=== PATIENT | male | born 1955 | race Caucasian/White ===

== ENCOUNTER → 2017-03-17 | Outpatient (CLI) | payer BC, OTHER ==
[~2017-03-17] MED LIST: AMLODIPINE BESY10 MG PO; ANTIVERT25 MG PO; ASPIR 8181 MG PO; AZOR 10-40 MG1 EACH PO; CEFUROXIME500 MG PO; CLONIDINE0.1 PO; DEPO-TESTO200 MG/1 M IM; GLUCOPHAGE XR750 MG PO; IRBESARTAN300 MG PO; JANUMET XR 1001 EACH PO; KEFLEX500 MG PO; LIPITOR10 MG PO; PLAVIX 75 MG TA75 M1 PO; ZOFRAN ODT4 MG PO
== END ==
LOC: ULTRA 07:32
DX: M79.89 Other specified soft tissue disorders (principal)

== ENCOUNTER 2017-03-18 09:17 | Day surgery (SDC) | payer BC, OTHER ==
[~2017-03-18] VITALS: Ht 175.3 cm; Wt 83.9 kg
--- NOTE | ~2017-03-18 | HC ---
[facility] [place] [address] CONSULTATION Name: DANY YOUNG Room #: 303-P [facility]..#: [id number] Admission: 03/18/17 Attend Phys: Gulshan Huerta MD Discharge: Date of : 53 Report #: [id number] THIS REPORT FOR: //name// CC: Gulshan Huerta REASON FOR CONSULTATION: I was asked to evaluate the patient concerning left calf infected hematoma. HISTORY OF PRESENT ILLNESS: The patient is a 60-year-old who about a week ago fell over a small picket fence. He had a laceration to his right lower pretibial skin as well as injury to his left calf and thigh. Swelling persisted in his calf along with increased erythema and tenderness. No documented fevers. He has underlying diabetes. Blood sugars have been in the mid 100s. Did not respond to oral antibiotic therapy and was taken to surgery yesterday for incision and drainage of infected hematoma. Gram stain was negative. Cultures are negative today. Overall, feels better today, pain is less and he is beginning to ambulate. ALLERGIES: None. MEDICATIONS: Prior to his admission he thinks he was on cephalexin. He is on ceftriaxone at this time. PAST MEDICAL HISTORY: Diabetes, hypertension, lumbar laminectomy, spinal fusion, gastric bypass, tonsillectomy, bilateral inguinal herniorrhaphies. SOCIAL HISTORY: Nonsmoker, no significant alcohol intake. His tetanus immunization was updated this past week. FAMILY HISTORY: Noncontributory. REVIEW OF SYSTEMS: No cardiopulmonary, GI or complaints. PHYSICAL EXAMINATION: VITAL SIGNS: Afebrile and hemodynamically stable. GENERAL: He is alert and cooperative and pleasant, in no acute distress. EXTREMITIES: He had a laceration to his right lower extremity. Right lower extremity, he had an eschar from a laceration to his lower right pretibial skin. Mild surrounding erythema and ecchymosis, no purulence or fluctuance. Left calf incision with bloody drainage. Minimal surrounding erythema. Moderate tenderness. Could not appreciate any fluctuance areas. He had an ecchymotic area to his left medial upper thigh. Pulses in the foot were normal. Sensation normal. Strength was normal. LABORATORY STUDIES: Hemoglobin is 13.9, white count 12.5, platelet count 358,000, differential unremarkable. Creatinine 1.4. [address] [address] CONSULTATION Name: DANY YOUNG Room #: 303-P [facility] M..#: [id number] Admission: 03/18/17 Attend Phys: Gulshan Huerta MD Discharge: Date of : 53 Report #: [id number] IMPRESSION: Left calf infected hematoma. I suspect Staph or strep most likely. No indication for methicillin-resistant Staphylococcus at this time. Recommend continuing cephalexin as an outpatient. We will await final culture results. May need to adjust his antibiotics growing forward following his culture results, but I suspect given the improvement with incision and drainage that cephalexin should suffice. This was discussed with the patient. He will follow up with Dr. Huerta, 1st of next week. <ELECTRONICALLY SIGNED> By: Alli Hinkle MD 03/19/17 1254 0956 1250 Alli Hinkle MD /nt
--- NOTE | ~2017-03-18 | O ---
[facility] [place] [address] OPERATIVE REPORT Name: DANY YOUNG Room #: DEP [facility]..#: [id number] Admission: 03/18/17 Attend Phys: Gulshan Huerta MD Discharge: 03/19/17 Date of : 53 Report #: [id number] THIS REPORT FOR: //name// CC: Gulshan Huerta DATE OF SERVICE: 03/18/2017 DATE OF ADMISSION: 03/18/2017. DATE OF OPERATION: 03/18/2017. PREOPERATIVE DIAGNOSIS: Left posterior calf hematoma and abscess with cellulitis. POSTOPERATIVE DIAGNOSIS: Left posterior calf hematoma and abscess with cellulitis. OPERATIVE PROCEDURE: Incision and drainage of left posterior calf hematoma and abscess with cultures, irrigation and packing. SURGEON: Otto Pham M.D. INDICATIONS: A 62-year-old male who approximately 1 week ago, tripped over a fence while in a parking lot at a car dealers incurring a puncture wound of the left posterior superior calf, which extended into the posterior superficial space behind the knee on the left. The patient also suffered a small abrasion of the medial aspect of his right ankle. The left posterior calf hematoma has significantly increased with more erythema, heat and is now consistent with cellulitis and abscess. OPERATIVE PROCEDURE: The patient had thorough discussion of the procedure, benefits and risks. He gave informed consent. He was brought to the operating room suite, had satisfactory induction of general anesthesia. He was placed into a right lateral decubitus position with appropriate axillary roll under his upper chest. The entire lower extremity from the mid thigh to the ankle was prepped and draped, the foot was then closed in a stockinette. Sterile draping was completed, an appropriate timeout was then performed. 0.5% Naropin was injected superficially around the abrasion, which was at the superior aspect of the patient's left calf. Initially, a 2-3 cm incision was made directly through the previous laceration puncture wound of the superior aspect of the calf. Upon entering the hematoma space old brownish fluid of liquefied hematoma was encountered, aerobic and anaerobic cultures were obtained of this fluid and cavity. Finger introduction into the cavity was performed and all loculations were broken up. Copious irrigation with saline was then performed. The wound was then packed open with half inch iodoform gauze. The patient tolerated the [address] [address] OPERATIVE REPORT Name: DANY YOUNG Salomon Room #: DEP [facility].#: [id number] Admission: 03/18/17 Attend Phys: Gulshan Huerta MD Discharge: 03/19/17 Date of : 53 Report #: [id number] procedure well and he had a sterile dressing applied and returned to the recovery room in stable and satisfactory condition. <ELECTRONICALLY SIGNED> By: Otto Pham MD, FACS 03/30/17 0858 1625 15 Otto Pham MD, CARLOS MANUEL /nt
--- NOTE | ~2017-03-18 | EKG ---
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
--- NOTE | ~2017-03-18 | HC ---
[facility] [address] [place] [address] CONSULTATION Name: DANY YOUNG Room #: DEP [facility]..#: [id number] Admission: 03/18/17 Attend Phys: Gulshan Huerta MD Discharge: 03/19/17 Date of : 53 Report #: [id number] THIS REPORT FOR: //name// CC: Alli Huerta MD REASON FOR CONSULTATION: Possible hemostasis disorder. HISTORY OF PRESENT ILLNESS: The patient is an extremely pleasant 62-year-old gentleman who is admitted after he had been found to have a hematoma/abscess of his left calf, which he had surgery for yesterday without any unusual complications. The patient gives a history that at age 15, when he was playing baseball, he took a line drive hit to his left ankle. It became quite swollen and evidently, they thought it was maybe red and possibly infected that lasted about 5 days later and it sounds like it was not definitely pus that he could recall and it did not recur after that. Then, about 30 years ago, probably at age 29, he had a vasectomy reversal and it sounds like he had again a hematoma developed shortly after surgery and then he also had some chills, but this area was warm and several days later, it is not that the lesion had enlarged, but because of persistence, it sounds like this was drained. It sounds like he might have gone back. Then he had, about 15 years ago, a left inguinal hernia surgery. About 2-3 days later, there was a hematoma. It sounds like it might have had fluid drained, but was there for about 6-7 weeks and I think he is actually having a third surgery. At this time, they put a drainage catheter and had no postop hematoma. It sounds like he had been on antibiotics, but it did not sound like he was clearly infected and it does not sound like he had a spreading cellulitis or pus that I can tell. He also, during the same lifetime, had surgery such as a spinal fusion, laminectomy, tonsillectomy at age 31 and a gastric bypass 10 years ago, and at least one dental work for which he has not had any difficulties with bleeding either during or after surgery. He also has had hypertension for about 30 years and diabetes for about 15 years. FAMILY HISTORY: Father had a teratoma at about age 22. It sounds like he had metastatic carcinoma, so this might have been a teratocarcinoma, started at age 28. No one in the family has had any bleeding or clotting disorders. SOCIAL HISTORY: Not smoking or drinking recently. No street drugs. 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 Travels quite a bit, has a very supportive and family. MEDICATIONS: Here in the hospital include losartan 100 mg daily, amlodipine 10 mg daily, ceftriaxone 1 gram q.24h., Zofran p.r.n., hydrocodone p.r.n. and morphine p.r.n. [facility] [address] [place] [address] CONSULTATION Name: DANY YOUNG Room #: DEP [facility] Rigoberto#: [id number] Admission: 03/18/17 Attend Phys: Gulshan Huerta MD Discharge: 03/19/17 Date of : 53 Report #: [id number] PHYSICAL EXAMINATION: VITAL SIGNS: Height is 5 foot 9, 175.3 cm. Weight 185 pounds or 83.9 kilograms. Blood pressure is 181/92, O2 sat 95%, respirations 13 and pulse 65. Afebrile at 98.5. MOOD: The patient is alert and very pleasant and conversant. NEUROLOGIC: The patient's face is symmetrical. He is moving all extremities. He is using a normal speech pattern and appears to be a very reliable historian. HEENT: Oropharynx is clear. LUNGS: Clear, symmetric, unlabored expansion, without rhonchi, wheezes or rales. HEART: Regular rate. No enlarged lymph nodes in the supraclavicular, cervical, axillary or inguinal region. ABDOMEN: Nontender. No masses. EXTREMITIES: Without clubbing or cyanosis. The patient does have evidence of the past ankle scar from years, also has a gauze wrapped. It is dry and reported to have stayed dry since surgery on his mid left calf. Groin has no lymphadenopathy. LABORATORY DATA: Lab tests here in the hospital include a BUN of 22, creatinine of 1.4 and glucose of 298. INR 1.1. APTT done in February 2015 of 28.9. Note in the past, for some reason, the patient had serum protein electrophoresis that was normal. White count on admission 10.2, hemoglobin 13.9, MCV 87.6, RDW 13.9 and platelets 358,000. Differential normal. In the past, he had blood tests, including antithrombin III that was 100%, protein C antigen 105% and protein S 120%. Factor V Leiden not present. Prothrombin gene mutation not present. DRVVT negative. Anticardiolipin tests were normal range. Rheumatoid factor was low. SAMIR was, I believe, low if I understand right. He has also had complement C3 and C4. They were checked back in February of 2015, and if I understand, these were normal range. TSH in the past checked. Folate and B12 checked in February 2015. Homocysteine level had been checked in February 2015, was slightly high at 15.8, not sure whether that is consequential or not. Imaging included for this patient, he has had an MRI of the head back in 2014 without acute findings. He also had a CT abdomen and pelvis back in 2007, with previous anterior bilateral pelvic hernia repairs and herniation of the omentum at the left inguinal canal at that time. ASSESSMENT AND PLAN: 1. History of postoperative hematoma, slow to resolve. History does not sound consistent with a bleeding diathesis as the patient has had multiple other surgeries in between those times that did not have unusual postoperative complications nor does the patient describe any unusual epistaxis or bruising with normal daily activity nor family history of this. At this point, I wonder whether the first one at age 15 was due to trauma and I think he was an active 15-year-old and the leg was not elevated. The clot probably persisted. It is also then possible that with the vasectomy reversal, this could have been predisposing the future difficulties because of some lymphatic irritation/damage [address] [address] CONSULTATION Name: DANY YOUNG Room #: [facility] M.R.#: [id number] Admission: 03/18/17 Attend Phys: Gulshan Huerta MD Discharge: 03/19/17 Date of : 53 Report #: [id number] and some hypervascular tissue. It sounds like when he had the inguinal hernia repair, it might have predisposed him. The fact that he has recovered well since then and has done well so far, I suggest strongly against a bleeding or coagulation difficulties, though question would suggest the patient avoid nonsteroidals, also antihistamines and certain antidepressants. They can contribute to bleeding difficulties and also llfn-xjv-ywznvbb agents such as [place]'s wort or Gingko probably 5-10 days both before and after surgical procedures, if able to. 2. Diabetes history. Continues stable weight, having lost 80 pounds intentionally. 3. Hypertension. Continues losartan and amlodipine per Dr. Huerta and others. 4. Question of infection risk. Dr. Alli Hinkle yet to see the patient. <ELECTRONICALLY SIGNED> By: Balod Patel MD 03/19/17 1946 0757 1206 Badlo Patel MD /nt
--- NOTE | ~2017-03-18 | HC ---
[facility] [place] [address] CONSULTATION Name: DANY YOUNG Room #: DEP [facility]#: [id number] Admission: 03/18/17 Attend Phys: Gulshan Huerta MD Discharge: 03/19/17 Date of : 53 Report #: [id number] THIS REPORT FOR: //name// CC: Gulshan Huerta DATE OF SERVICE: 03/19/2017 ATTENDING PHYSICIAN: Dr. Huerta. CHIEF COMPLAINT: Left posterior calf hematoma, abscess. HISTORY OF PRESENT ILLNESS: The patient is a very pleasant 62-year-old male who was admitted by Dr. Pham for I and D of the left posterior calf. He was seen in clinic previously and scheduled for incision and drainage today. He is a longstanding patient of Dr. Huerta. The patient states that he tripped and fell over a spiked fence sustaining an abrasion to his right anterior lower extremity bruising to his left medial thigh and hematoma to his left posterior calf. Again, the patient underwent evacuation and drainage of hematoma by Dr. Pham yesterday. He does plan to discharge home today. We did discuss the need for daily dressing changes and home health to provide this. PAST MEDICAL HISTORY: Significant for hypertension, otherwise healthy. FAMILY HISTORY: Not pertinent to current wound diagnoses. SOCIAL HISTORY: Negative for tobacco. Drinks occasional alcohol. Negative for illicit drug use. The patient independent prior to accident and has supportive family. 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 ALLERGIES: No known drug allergies. MEDICATIONS: Include losartan, amlodipine, ceftriaxone, Zofran, and hydrocodone. REVIEW OF SYSTEMS: Negative. The patient denies fevers, chills, chest pain, shortness of breath, abdominal pain and is eager to be discharged home today. PHYSICAL EXAMINATION: GENERAL: He is alert, in no acute apparent distress. VITAL SIGNS: Stable. The patient is afebrile. HEENT: Head atraumatic, normocephalic. Mucous membranes moist. Mood alert, pleasant. NEUROLOGIC: Cranial nerves 2-12 are intact. Normal speech. He can move all 4 limbs. Negative for motor or sensory deficits. CHEST: Lungs clear symmetric, nonlabored expansion. HEART: Regular rate and rhythm. [facility] [address] [place] [address] CONSULTATION Name: DANY YOUNG Room #: [facility].#: [id number] Admission: 03/18/17 Attend Phys: Gulshan Huerta MD Discharge: 03/19/17 Date of : 53 Report #: [id number] ABDOMEN: Soft, nontender. EXTREMITIES: 2+ pulses pedal, exam of the posterior calf, the packing was removed. There is undermining from approximately 10-2 o'clock with moderate sanguinous drainage. Periwounds are clean, dry and intact. Ecchymosis to the proximal aspect as well as medial upper thigh. LABORATORY DATA: White count on admission was 10.2, hemoglobin 13.9. IMPRESSION: 1. Hematoma, status post evacuation to left posterior calf. 2. Hypertension. 3. Possible clotting disorder. The patient was seen by rubber tubing splicer during the hospital stay. PLAN: 1. We will continue with daily iodoform packing to the posterior calf, cover with 4 x 4, ABD and Agus bandage for compression. 2. The patient to discharge home with probable home health or to do dressing changes. 3. The patient to follow up with Dr. Pham next Wednesday for postoperative evaluation. 4. The patient to follow up with Dr. Bañuelos in [facility]. He will call to schedule appointment [phone] within 1-2 weeks. Thank you for allowing us to participate in the care. By: [id number] DANIELA Beasley /nt
[~2017-03-18 09:17] MED LIST changes: -AZOR 10-40 MG1 EACH PO; -CEFUROXIME500 MG PO; -JANUMET XR 1001 EACH PO; -KEFLEX500 MG PO
[2017-03-18 09:51] LABS: ABSOLUTE NEUTROPHILS 7.7 thou/uL (1.4-8.2); BASOPHILS 1.1 % (0.0-2.0); EOSINOPHILS 1.5 % (0.0-3.0); HEMATOCRIT 42.4 % (42.0-52.0); LYMPHOCYTES 13.6 % (24.0-44.0); MCH 28.9 pg (26.0-34.0); MCHC 33.1 g/dL (28.0-37.0); MCV 87.3 fL (80.0-100.0); MONOCYTES 8.5 % (1.0-8.0); PLATELET COUNT 342 thou/uL (150-400); POLYS 75.3 % (36.0-66.0); RBC 4.86 mil/uL (4.50-6.00); RDW 14.1 % (10.5-14.5); WBC 10.2 thou/uL (4.0-11.0)
[2017-03-18 09:53] LABS: MANUAL DIFF NO
[2017-03-18 09:57] LABS: INR 1.1; PROTIME 11.1 Seconds (9.3-11.4)
[2017-03-18 17:47] VITALS: BP 181/90
[2017-03-18] MEDS ORDERED: JANUMET XR 1001 EACH PO (17:59)
[2017-03-18] MEDS ORDERED: AZOR 10-40 MG1 EACH PO (17:59)
[2017-03-18] MEDS ORDERED: ASPIR 8181 MG PO (18:00)
[2017-03-18 20:17] VITALS: BP 181/92
[2017-03-19 05:50] LABS: HEMATOCRIT 41.7 % (42.0-52.0); HEMOGLOBIN 13.9 gm/dL (14.0-18.0); MCH 29.2 pg (26.0-34.0); MCHC 33.3 g/dL (28.0-37.0); MCV 87.6 fL (80.0-100.0); PLATELET COUNT 358 thou/uL (150-400); RBC 4.76 mil/uL (4.50-6.00); RDW 13.9 % (10.5-14.5); WBC 12.5 thou/uL (4.0-11.0)
[2017-03-19 05:53] LABS: MANUAL DIFF YES
[2017-03-19 05:58] LABS: CALCIUM 8.8 mg/dL (8.5-10.1); CREATININE 1.4 mg/dL (0.7-1.3)
[2017-03-19 08:37] VITALS: BP 155/81
[2017-03-19 08:55] LABS: ABSOLUTE NEUTROPHILS 10.9 thou/uL (1.4-8.2); TOTAL CELL COUNT 100
[2017-03-19 08:56] LABS: ANISOCYTOSIS SLIGHT
[2017-03-19] MEDS ORDERED: CEFUROXIME500 MG PO (10:48)
[2017-03-19] MEDS ORDERED: KEFLEX500 MG PO ×2 (10:53→10:54)
[2017-03-19 10:55] VITALS: BP 155/81
[2017-03-19 12:50] VITALS: BP 155/81
[2017-03-19 13:41] VITALS: BP 155/81
[2017-03-19 15:04] VITALS: BP 155/81
[2017-03-19 15:32] VITALS: BP 155/81
== END 2017-03-19 15:50 | disposition home health service (06) ==
LOC: OR 09:17 → TBA 09:17 → OPONC 09:17 → 3N 09:17 → TBA 13:30 → OPONC 13:30 → EDSTATUS 13:45 → TBA 13:46 → 3N 17:32 → OR 03-19 15:50
PROVIDERS: Family Medicine; Specialist; Surgery
DX: S80.12XA Contusion of left lower leg, initial encounter (principal); L02.416 Cutaneous abscess of left lower limb; I10 Essential (primary) hypertension; Z98.84 Bariatric surgery status; Z98.890 Other specified postprocedural states; X58.XXXA Exposure to other specified factors, initial encounter; Y93.89 Activity, other specified; Y92.89 Other specified places as the place of occurrence of the external cause; Y99.8 Other external cause status
CPT/HCPCS: 50010; 50101; 50386; 50403; 62110; 62900; 70005; 95000

== ENCOUNTER 2017-03-20 18:14 | Emergency (ER) | payer BC, OTHER ==
[~2017-03-20] VITALS: Ht 175.3 cm; Wt 83.9 kg
[~2017-03-20 18:14] MED LIST changes: +AZOR 10-40 MG1 EACH PO; +CEFUROXIME500 MG PO; +JANUMET XR 1001 EACH PO; +KEFLEX500 MG PO
[2017-03-20 18:36] LABS: URINE BILIRUBIN NEGATIVE (Negative); URINE BLOOD 3+ (Negative); URINE COLOR YELLOW; URINE GLUCOSE-RANDOM* 3+ (Negative); URINE KETONES NEGATIVE (Negative); URINE LEUKOCYTES-REFLEX NEGATIVE (Negative); URINE PROTEIN (DIPSTICK) NEGATIVE (Negative); URINE UROBILINOGEN 0.2 E.U./dl (0.2-1.0)
[2017-03-20 18:42] LABS: CASTS None Seen /LPF (None Seen); SQUAMOUS 0-3 Few /LPF (0-3)
[2017-03-20 18:43] LABS: URINE WBC-REFLEX 0-5 Rare /HPF (0-5)
== END 2017-03-20 19:37 | disposition home or self-care (01) ==
LOC: ER 18:14
PROVIDERS: Emergency Medicine
DX: R31.9 Hematuria, unspecified (principal); E11.9 Type 2 diabetes mellitus without complications; I10 Essential (primary) hypertension; Z90.89 Acquired absence of other organs; Z98.890 Other specified postprocedural states

== ENCOUNTER → 2020-07-19 | Outpatient (CLI) | payer OTHER | LOC: LAB 08:12 | PROVIDERS: ATTEND Family Medicine | DX: Z20.828 Contact with and (suspected) exposure to other viral communicable diseases (principal) ==